=== PATIENT | female | born 1960 ===

== ENCOUNTER 2024-03-07 12:41 | Emergency (ER) | payer MEDICAID, SELFPAY ==
[2024-03-07 12:43] VITALS: BP 158/62; PULSE 95; RESP 16; TEMP 36.6; O2SAT 98; BMI 24.2
--- NOTE | 2024-03-07 12:45 | ED_ITS ---
HPI - Skin/Abscess/Foreign Bdy General Chief complaint: Animal Bite Stated complaint: spider bite on face Time Seen by Provider: 03/07/24 18:36 History of Present Illness ED Provider: Oj COREA narrative: The patient is a 63-year-old woman who presents to the emergency room for evaluation of a painful red swelling on her left cheek. She says that she has had problems for several days and that the redness has been much more generalized around the left cheek. It has now become localized just under the left eye and has drained a little bit of pus. It is painful to the touch. She has not had a fever. She wonders if she might have been bitten by a spider. Related Data Previous Rx's ?Medication ?Instructions ?Recorded sulfamethoxazole 800 1 tab PO BID #16 tabs 03/07/24 mg-trimethoprim 160 mg tablet Allergies Allergy/AdvReac Type Severity Reaction Status Date / Time sumatriptan [From [facility]RE[facility]] Allergy Unknown SWELLING Verified 03/07/24 12:48 From [facility]RE[facility] Allergy Unknown SWELLING Uncoded 03/07/24 12:48 Review of Systems Review of Systems: Yes all other systems are reviewed and are negative [facility] Social History Social History Advance Directives: No Advance Directives Information Provided: No Do you have a plan to hurt others: No Plan Physical Exam Vital Signs: Vital Signs: Last Vital Signs Temp 98.4 F 03/07/24 18:58 Pulse 80 03/07/24 18:58 Resp 16 03/07/24 18:58 BP 109/60 03/07/24 18:58 Pulse Ox 97 03/07/24 18:58 O2 Del Method Room Air 03/07/24 18:58 BMI result Body Mass Index 24.2 Const: Other: The patient is awake, alert, pleasant, cooperative. She has a normal mental status. She has an obvious soft tissue skin infection to the left cheek under the left eye. She does not seem toxic, or in distress. HEENT: Other: There is an area of redness and swelling to the left upper cheek just below the eyelid. The swelling extends towards the medial canthus of the left eye. The swelling is tender and with a pressure I can express a small amount of pus through an area of skin breakdown. The area of swelling is quite localized in an area approximately 2 cm x 4 cm. Eyes: Other: Pupils are round equal, conjunctivae are clear, extraocular movements intact. The swelling on the left cheek below the left eye extends towards the medial canthus but does not cause significant eyelid swelling otherwise. The eye itself does not appear abnormal in any way. Neck: Other: Moving her neck easily. Resp: Effort & Inspection: normal respiratory effort Skin: Other: The skin is normal except for the skin of the face and a left cheek where there is erythema and soft tissue swelling. This area is quite tender. Neuro: Other: The patient is awake and alert with a normal mental status. Cranial nerves are intact. She moves her extremities normally. Neurologically intact. Benign demeanor Course Course Course Narrative: This is a Rapid Medical Exam performed in triage by Jayde Joseph PA-C. Full HPI, ROS and PE to be performed by primary ED provider. 63 yo F presenting to the ED c/o suspected spider bite to face x 7 days. Admits to some drainage to area. Has been using OTC meds w/o relief. denies visual complaints PE: +fluctuant abscess noted to left infra-orbital region with overlying erythema Plan: needs I&D Medications Administered Discontinued Medications Generic Name Dose Route Start Last Admin Trade Name Freq PRN Reason Stop Dose Admin Bacitracin 1 appl 03/07/24 18:27 03/07/24 19:14 Bacitracin Oint 0.9 Gm Packet TOPICAL 03/07/24 18:28 1 appl ONCE ONE Administration Protocol Lidocaine HCl 2 ml 03/07/24 18:40 03/07/24 19:02 Lidocaine Hcl 1 % Mpf 2 Ml Vial INFILTRATI 03/07/24 18:41 2 ml ONCE ONE Administration Medical Decision Making Medical Decision Making [facility] Narrative: The patient has a soft tissue skin abscess to the left cheek low the eye. I do not think the eye itself is affected. I explained to the patient that I thought it would be good to make a small incision to drain the abscess. The patient agreed. The skin was therefore prepped with Betadine. I anesthetized the area with 1% plain lidocaine using 1 mL of lidocaine. I then made a small incision with a 11. Blade and was able to express a lot of pus. The patient tolerated the procedure well. She will be started on Bactrim. The pus was swabbed for culture. She should follow up with her PCP or return if worse. Procedures Abscess I/D Site: face Side (if applicable): left Local Anesthetic: lidocaine 1% Amount of anesthesia used (mL): 1 Technique: incised with blade Amount of fluid expressed (mL): 3 Sent for culture/gram staining?: Yes Irrigation: No Packing used?: none Discharge Plan Discharge Clinical Impression: Cutaneous abscess of face Patient Disposition: Home, Self-Care Instructions: Abscess (ED), Incision and Drainage (ED) Additional Instructions: You have a superficial abscess to the skin of your left cheek. With an incision with a scalpel we were able to drain a significant amount of pus from the abscess. You has been started on an antibiotic, sulfamethoxazole/trimethoprim (also known as Bactrim). Please take this antibiotic 2 times a day, approximately every 12 hours. Next dose tomorrow morning. Please follow up next week with your regular doctor for a recheck. Return to the emergency room if worse. Prescriptions: New sulfamethoxazole-trimethoprim 800-160 mg tablet 1 tab PO BID Qty: 16 0RF Referrals: Noam Chavez MD [Primary Care Provider] - (FACIAL ABSCESS) Print Language: Macanese
[2024-03-07 18:58] VITALS: BP 109/60; PULSE 80; RESP 16; TEMP 36.9; O2SAT 97
[2024-03-07] MEDS: Lidocaine HCl 1 % MPF 2 ML VIAL INFILTRATI (19:02)
[2024-03-07] MEDS: Bacitracin Oint 0.9 GM PACKET 1 APPL TOPICAL (19:14)
[2024-03-07] MEDS: Sulfamethox/Trimeth 800/160 TABLET 1 TAB PO (19:18)
[2024-03-07 19:23] VITALS: BP 109/60; PULSE 80; RESP 16; TEMP 36.9; O2SAT 97
== END 2024-03-07 19:23 | disposition home or self-care (01) ==
PROVIDERS: Emergency Provider Emergency Medicine; PCP Family Medicine
DX: L02.01 Cutaneous abscess of face (principal)
CPT/HCPCS: 10060; 87070; 87077; 87186; 87205; 99283; 99284; J2003